=== PATIENT | male | born 1960 | race Caucasian/White ===

== ENCOUNTER 2016-09-28 08:00 | Day surgery (SDC) | payer OTHER ==
[~2016-09-28] VITALS: Ht 172.7 cm; Wt 77.3 kg
[2016-09-28 09:29] VITALS: Ht 172.7 cm; Wt 77.3 kg
[2016-09-28] MEDS ORDERED: CATOPRIL (09:34)
[2016-09-28] MEDS ORDERED: ATORVASTATIN (09:34)
[2016-09-28 09:58] VITALS: BP 111/74; PULSE 74; RESP 21
[2016-09-28 11:15] VITALS: BP 113/83; PULSE 58; RESP 16
[2016-09-28] MEDS ORDERED: FENTAnyl 50 MCG/ML VIAL ONE (11:16)
[2016-09-28] MEDS ORDERED: MIDAZOLAM 1 MG/ML 2 ML INJ ONE ×2 (11:16)
--- NOTE | 2016-09-28 13:29 | GILP ---
DATE OF PROCEDURE: 09/28/2016 PROCEDURE PERFORMED: Colonoscopy with saline lift polypectomy and cold snare polypectomy. SURGEON: Alexander Francois MD INDICATION: A 56-year-old male undergoing this procedure for screening colonoscopy. The risk of th e procedure, related and unrelated complications, anesthetic risks, alternatives discussed and infor med consent was obtained. DESCRIPTION OF PROCEDURE: The patient was sedated with Versed 4 mg and fentanyl 75 mg. After optim al sedation and digital examination, scope was passed with much ease into the rectum. At 50 cm, a f lat polyp 1 cm in diameter identified. With the saline lift, polypectomy done, polyp was retrieved and sent for analysis. Cold snare technique was used. The scope was advanced all the way into the cecum. Appendiceal orifice and IC valve identified. The patient had a reverse alpha loop which was reduced. While coming out, mucosa thoroughly inspected. There was another flat polyp in the rectu m, successfully removed by cold snare technique. Small hemorrhoids identified. Scope was thus remov ed with excellent patient tolerance. IMPRESSION: 1. Saline lift polypectomy done at 50 cm, 1 cm flat polyp. 2. A 1 cm another flat polyp in the rectosigmoid area, successfully removed by cold snare technique . 3. Negative all the way into cecum. 4. Clarity and cleanliness was good. 5. Digital examination was normal. PLAN: Review the histopathology of the polyp. The patient definitely needs colonoscopy in 5 years. Dictated By: ALEXANDER FRANCOIS MD PJ/NTS Conf#: [id number] DID#: [id number] CC: ALEXANDER FRANCOIS MD;*EndCC*
== END 2016-09-28 12:29 | disposition home or self-care (01) ==
LOC: GIL 08:00
PROVIDERS: ATTEND Internal Medicine Gastroenterology
DX: Z12.11 Encounter for screening for malignant neoplasm of colon (principal); D12.4 Benign neoplasm of descending colon; D12.7 Benign neoplasm of rectosigmoid junction; I10 Essential (primary) hypertension; E78.5 Hyperlipidemia, unspecified
CPT/HCPCS: 45380; 45385; 88305; J2250; J3010; Z7610